=== PATIENT | female | born 1965 | race African-American/Black ===

== ENCOUNTER 2019-03-12 04:24 | Emergency (ER) | payer OTHER ==
[~2019-03-12] VITALS: Ht 170.2 cm; Wt 63.5 kg
[2019-03-12 05:39] LABS: ABSOLUTE NEUTROPHILS 3.3 thou/uL (1.4-8.2); BASOPHILS 0.8 % (0.0-2.0); EOSINOPHILS 0.7 % (0.0-3.0); HEMATOCRIT 39.5 % (37.0-47.0); HEMOGLOBIN 13.7 gm/dL (12.0-15.0); LYMPHOCYTES 34.9 % (24.0-44.0); MCH 31.9 pg (26.0-34.0); MCHC 34.7 g/dL (28.0-37.0); MCV 92.1 fL (80.0-100.0); MONOCYTES 8.4 % (1.0-8.0); PLATELET COUNT 229 thou/uL (150-400); POLYS 55.2 % (36.0-66.0); RBC 4.29 mil/uL (4.20-5.00)
[2019-03-12 05:41] LABS: CALCIUM 9.1 mg/dL (8.5-10.1); CREATININE 0.9 mg/dL (0.6-1.0); POTASSIUM 3.4 mmol/L (3.5-5.1)
[2019-03-12 05:48] LABS: ALBUMIN 3.8 g/dL (3.4-5.0); TOTAL BILIRUBIN 0.9 mg/dL (<0.1-1.0); TOTAL PROTEIN 7.3 g/dL (6.4-8.2)
[2019-03-12 06:00] LABS: URINE BILIRUBIN NEGATIVE (Negative); URINE BLOOD NEGATIVE (Negative); URINE CLARITY CLEAR; URINE COLOR YELLOW; URINE GLUCOSE-RANDOM* NEGATIVE (Negative); URINE KETONES NEGATIVE (Negative); URINE LEUKOCYTES-REFLEX TRACE (Negative); URINE NITRITE-REFLEX NEGATIVE (Negative); URINE PROTEIN (DIPSTICK) NEGATIVE (Negative); URINE SPECIFIC GRAVITY <= 1.005 (1.005-1.035); URINE UROBILINOGEN 0.2 E.U./dl (0.2-1.0)
[2019-03-12] MEDS ORDERED: PEPCID20 MG PO (06:03)
[2019-03-12 06:30] VITALS: BP 135/85
--- NOTE | 2019-03-12 15:47 | EKG ---
[address] [address] ELECTROCARDIOGRAM REPORT Name: ELIAZAR PAULSON SRINIVAS Room #: [id number] ������������������ Admission: 03/12/19 ������������������ Attend Phys: Discharge: 03/12/19 ������������������ Date of : 69 Report #: [id number] ����������������������������������������������������������������� [id number] THIS REPORT FOR: //name// [facility] ED Test Date: 2019-03-12 Test Time: 04:46:36 Pat Name: ELIAZAR PAULSON Department: Room: Gender: F Senior Logistics Manager: : [id number] Requested By: Elizabeth Johnson Order Number: [id number] MD: Ant Holland Measurements Intervals [place] Rate: 70 P: 86 FL: 140 QRS: 81 QRSD: 79 T: 47 QT: 377 QTc: 407 Interpretive Statements Sinus rhythm Consider left ventricular hypertrophy Compared to ECG 05/28/2016 13:53:58 ST (T wave) deviation no longer present Electronically Signed On 03-12-2019 15:46:59 CDT by Ant Holland [email or web address] ��������������������������������������������� <ELECTRONICALLY SIGNED> ���������������������������������������� By: Ant Holland MD ��������������������������������������������� 03/12/19 [id number] [id number] Ant Holland MD /SKY
== END 2019-03-12 06:30 | disposition home or self-care (01) ==
LOC: ER 04:24
PROVIDERS: Student in an Organized Health Care Education/Training Program
DX: K29.70 Gastritis, unspecified, without bleeding (principal); Z98.890 Other specified postprocedural states